=== PATIENT | female | born 1990 | race Hispanic/Latino ===

== ENCOUNTER 2021-05-31 07:55 | Day surgery (SDC) | payer OTHER ==
[2021-05-28 08:55] LABS: Absolute Lymphocytes (CBC) 1.5 K/uL (0.7-4.9); Hematocrit 33.8 % (36.0-45.0); Lymphocytes % 25.6 % (15.3-44.8); MPV 6.7 fL (7.6-11.3); RBC Red Blood Cell Count 4.85 M/uL (3.86-4.86)
[2021-05-28 09:14] LABS: ALT/SGPT 16 U/L (12-78); AST/SGOT 12 U/L (15-37); Albumin 3.5 g/dL (3.4-5.0); Alkaline Phosphatase 68 U/L (45-117); Amylase 56 U/L (25-115); BUN Blood Urea Nitrogen 7 mg/dL (7-18); Bicarbonate 26 mmol/L (21-32); Bilirubin Direct < 0.1 mg/dL (0-0.2); Bilirubin Total 0.2 mg/dL (0.2-1.0); Glucose Level 92 mg/dL (74-106); Potassium 4.1 mmol/L (3.5-5.1); Protein, Total 7.6 g/dL (6.4-8.2); Sodium Level 137 mmol/L (136-145)
[2021-05-28 10:30] LABS: Platelet Estimate ADEQ; White Blood Cell Scan OK (OK)
[2021-05-28 10:31] LABS: Anisocytosis 1+; Blood Morphology Comment NOTED (NOT SEEN); Hypochromasia 1+
[2021-05-31] MEDS ORDERED: CELECOXIB 100 MG CAPSULE ONE (08:34)
[2021-05-31] MEDS ORDERED: CEFOXITIN/NS 1gm 1 GM/50 ML BAG ONE (08:34)
[2021-05-31] MEDS ORDERED: Ringers Lactate 1,000 ML IV ONE (08:34)
[2021-05-31] MEDS ORDERED: ACETAMINOPHEN 500 MG TAB ONE (08:34)
[2021-05-31] MEDS ORDERED: FENTANYL CITR 100 MCG/2 ML ONE ×4 (10:19→11:21)
[2021-05-31] MEDS ORDERED: propofoL 200 MG/20 ML VIAL IV ONE ×2 (10:21→10:53)
[2021-05-31] MEDS ORDERED: LIDOCAINE 2% MPF 5 ML VIAL ONE (10:21)
[2021-05-31] MEDS ORDERED: MIDAZOLAM HCL 2 MG/2 ML INJ ONE ×2 (10:21→10:53)
[2021-05-31] MEDS ORDERED: ONDANSETRON 4 MG/2 ML VIAL ONE ×3 (10:21→12:32)
[2021-05-31] MEDS ORDERED: dexAMETHasone 10 MG/ML VIAL ONE ×2 (10:21→11:18)
[2021-05-31] MEDS ORDERED: ROCURONIUM 50 MG/5 ML VIAL IV ONE ×3 (10:21→10:54)
[2021-05-31] MEDS ORDERED: LIDOCAINE 1% MPF 5 ML VIAL ONE (10:53)
[2021-05-31] MEDS ORDERED: KETOROLAC 30 MG/ML INJ ONE (11:18)
[2021-05-31] MEDS ORDERED: GLYCOPYRROLATE 0.2 MG/ML SYR ONE (12:01)
[2021-05-31] MEDS ORDERED: NEOSTIGMINE 1 MG/ML -5 ML ONE (12:02)
[2021-05-31] MEDS ORDERED: Mastisol Adhesive Liq ONE (12:09)
[2021-05-31] MEDS ORDERED: HYDROMORPHONE HCL 1 MG/ML INJ ONE (12:32)
--- NOTE | 2021-05-31 12:37 | OP ---
Date of Procedure: 05/31/2021 Surgeon: Meño Mitchell MD Student Services Vice President: BEBA Gil Preoperative Diagnosis: Chronic cholecystitis and cholelithiasis. Postoperative Diagnosis: Chronic cholecystitis and cholelithiasis. Procedure: Laparoscopic cholecystectomy. Estimated Blood Loss: Minimal. Specimen: Gallbladder. Finding: As above. Anesthesia: General. Complications: None. Disposition: The patient tolerated the procedure in stable condition and taken to Recovery in good g eneral condition. Procedure In Detail: The patient was brought to the OR and placed in supine position. General anest hesia begun. The patient was prepped and draped in usual sterile fashion. Marcaine 0.5% was infiltr ated locally. A 15-blade was used to make a 1 cm supraumbilical midline incision. Subcutaneous tiss ue divided. Fascia identified, divided. A #1 Vicryl stay suture was placed. Peritoneal cavity ente red with sharp and blunt dissection and then 12 mm trocar was placed into the peritoneal cavity under direct vision. Pneumoperitoneum was established. Then, three 5 mm trocars were placed, 1 in the ep igastrium just to the right of midline and 2 in the right subcostal region. Laparoscopy revealed chr onic inflammation of the gallbladder. Fundus retracted superiorly. Infundibulum was identified and retracted inferolaterally. Cystic duct was very adherent to the right hepatic duct, which was separa angelica with sharp and blunt dissection and clear identification of the cystic duct emanating from the in fundibulum was done. Then, clips were placed. Cystic duct was divided. Cystic artery was identifie d and divided between clips, and then cautery was used to remove the gallbladder from the liver bed. Bleeding on the liver bed controlled with cautery. Gallbladder was retrieved through the umbilicus via an EndoCatch bag. Right upper quadrant was irrigated. Effluent was clear. No evidence of bleed ing or bile leakage appreciated. Subsequently, all trocars were removed under direct vision. Stay s utures tied to each other to reapproximate the fascial defect. Subcutaneous wounds irrigated. Bleed ing controlled with cautery. A 3-0 chromic used to approximate the subcutaneous tissue and close the skin. Sterile dressing applied. The patient was awakened and taken to Recovery in good general con dition. Discharge Note: The patient will go to Day Surgery and home when stable. Disposition: Home. Condition: Stable. Discharge Instructions: Resume home medications and diet. Activity as tolerated. No heavy lifting. Remove outer dressing in 2 days. Shower. Keep wound clean and dry. Keep Steri-Strips on at all t imes. Incentive spirometry as ordered. Tylenol No.3 one tablet p.o. q.4 p.r.n. pain. /MODL Voice ID: [id number] Report ID: [id number]
[2021-05-31] MEDS ORDERED: CODEINE 30MG/APAP 300MG TAB ONE (13:25)
[2021-05-31 13:46] VITALS: BP 133/87; TEMP 97.3; O2SAT 99
== END 2021-05-31 13:50 | disposition home or self-care (01) ==
LOC: OR 07:55
PROVIDERS: ATTEND Surgery
PROC: 0FT44ZZ Resection of Gallbladder, Percutaneous Endoscopic Approach (ICD-10-PCS; principal; 2021-05-31 09:30)
DX: K80.10 Calculus of gallbladder with chronic cholecystitis without obstruction (principal); Z20.822 Contact with and (suspected) exposure to COVID-19
CPT/HCPCS: 85025; 80048; 36415; 82150; 81025; 80076; 88304; 47562; U0003; J2704; J2250; J3010 ×2; J1100; J2710; J7120; J0694; J2405 ×3; J1170